=== PATIENT | female | born 1935 | race Caucasian/White ===

== ENCOUNTER 2018-03-17 08:18 | Emergency (ER) | payer OTHER ==
[2018-03-17] MEDS ORDERED: IPRATROPIUM BROM 0.5MG/2.5ML ONE (09:11)
[2018-03-17] MEDS ORDERED: ALBUTEROL 2.5 MG/3 ML NEB SOL ONE (09:11)
[2018-03-17] MEDS ORDERED: NA CHLORIDE 0.9% 2,000 ML ONE (09:11)
[2018-03-17 09:42] LABS: Absolute Lymphocytes (CBC) 0.5 K/uL (0.7-4.9); Absolute Monocytes 0.5 K/uL (0.1-1.3); Absolute Neutrophil 8.2 K/uL (1.8-8.0); Basophils % 0.5 % (0-1.3); Eosinophils % 0.1 % (0-4.4); Hematocrit 36.8 % (36.0-45.0); Lymphocytes % 5.7 % (15.3-44.8); MCV 90.7 fL (80-100); MPV 8.1 fL (7.6-11.3); Monocytes % 5.2 % (3.3-12.3); Protime INR 0.98; RBC Red Blood Cell Count 4.06 M/uL (3.86-4.86)
[2018-03-17 09:49] LABS: Potassium 3.9 mmol/L (3.5-5.1)
[2018-03-17 09:50] LABS: Albumin 3.3 g/dL (3.4-5.0); Bilirubin Direct 0.2 mg/dL (0-0.2); Bilirubin Total 0.8 mg/dL (0.2-1.0); Protein, Total 7.3 g/dL (6.4-8.2); Troponin (Emerg Dept Use Only) 0.04 ng/mL (0.0-0.045)
[2018-03-17 09:56] LABS: Urine Appearance CLEAR; Urine Bilirubin NEGATIVE (NEG); Urine Blood NEGATIVE (NEG); Urine Color YELLOW; Urine Glucose NEGATIVE (NEG); Urine Protein NEGATIVE (NEG); Urine Urobilinogen 0.2 mg/dL (0.2-1.0)
[2018-03-17 09:58] LABS: Urine Microscopic Reflex NO UMIC
[2018-03-17 10:27] LABS: Arterial Blood Carboxyhemoglob 1.1 % (0-1.5); Blood Gas Oxyhemoglobin 88.9 % (94-97); Blood O2 Saturation 90.9 % (92-98.5)
[2018-03-17 10:53] LABS: Blood Morphology Comment NOT SEEN (NOT SEEN); Platelet Estimate INCR; Urine White Blood Cell Casts OK
--- NOTE | 2018-03-17 12:09 | EKG ---
Test Date: 2018-03-17 Test Time: 09:53:36 Design Draftsman: SHARLA MEASUREMENT RESULTS: Intervals: Rate: 97 CT: 122 QRSD: 86 QT: 378 QTc: 480 Edna: P: 57 CT: 122 QRS: 58 T: 85 INTERPRETIVE STATEMENTS: Normal sinus rhythm Left ventricular hypertrophy with repolarization abnormality Abnormal ECG Compared to ECG 03/19/2017 05:47:19 Early repolarization now present Electronically Signed On 03-17-18 12:08:27 CDT by Walt Carey
--- NOTE | 2018-03-17 12:48 | RAD REPORT ---
EXAM DESCRIPTION: CT - Abdomen Pelvis W Contrast - 03/17/2018 12:24 pm CLINICAL HISTORY: Left-sided abdominal pain, left-sided flank pain, history of mastectomy for carcin jr and prior hernia repair COMPARISON: CT imaging March 2017 TECHNIQUE: Biphasic, helical CT imaging of the abdomen and pelvis was performed following 100 ml non -ionic IV contrast. Oral contrast was given. All CT scans are performed using dose optimization technique as appropriate and may include automated exposure control or mA/KV adjustment according to patient size. FINDINGS: Small bilateral pleural effusions are present. There is partial atelectasis of each lower lobe. Prominent soft tissue seen in each infrahilar region. This CT abdomen examination is not adequa te for thoracic assessment. Cardiomegaly is present. No pericardial effusion seen. The liver, spleen, and pancreas show no suspicious findings. Gallbladder and biliary tree are also wi thout suspicious finding. Renal function is symmetric and may be slightly delayed in a symmetric pattern. Bilateral pelvic and caliceal significant dilatation is present new from March 2017. Ureter dilatation is not confirmed. No bladder wall thickening or mass. No obstructing or nonobstructing calculi identifiable. No gastric dilatation or gastric wall thickening. No dilated small bowel loops. There is a relatively small amount of stool in the colon from splenic flexure to the rectum. There is a large amount of st ool distending the remainder of the colon. Right-side colon is tortuous and redundant distended by st ool. Similar pattern was seen in 2017. No free air, free fluid or inflammatory stranding. No hernia, mass or bulky lymphadenopathy. Advanced disc and bony degenerative change present. No acute or pathologic bone process process. Dens e arterial tree calcifications. No suspicious bony findings. IMPRESSION: No bowel obstruction, free air or surgically emergent finding. There is a large amount o f stool distending the right-side of the colon in a pattern similar to March 2017. Bilateral hydronephrosis of the pelvis and calices without obstructing or nonobstructing calculi seen . There is no delay in function or only minimal symmetric delay in function of the kidneys. No hydroureter seen. No bladder abnormality. The etiology for the new dilatation is unknown. Small bilateral pleural effusions and lung base atelectasis. There is additional infrahilar and lung base opacification that is not adequately imaged on CT abdomen examination.
--- NOTE | 2018-03-17 13:57 | EDPHYS ---
Physician Documentation [facility] Name: Lucille Kaminski Age: 82 yrs Sex: Female : 1935 Arrival Date: 03/17/2018 Time: 08:23 Bed 20 Private MD: out of town, doctor ED Physician Elan Gee HPI: 03/17 13:48 This 82 yrs old Female presents to ER via Wheelchair with complaints of gs Abdominal Pain, Back Pain. 13:48 The patient presents with pain that is acute. The symptoms are located in the low back. gs Onset: The symptoms/episode began/occurred 2 day(s) ago, and became persistent. The pain does not radiate. Associated signs and symptoms: Pertinent positives: abdominal pain. Modifying factors: The patient symptoms are alleviated by nothing, the patient symptoms are aggravated by any movement. Severity of symptoms: At their worst the symptoms were moderate, in the emergency department the symptoms are unchanged. The patient has experienced similar episodes in the past, a few times. just discharged from hospital last week, chf, pleural effusions. Historical: - Allergies: 08:32 Ciprofloxacin HCl; bp 08:32 Codeine; bp 08:32 metoclopramide HCl; bp 08:32 sulfamethoxazole-trimethoprim; bp - Home Meds: 08:32 albuterol sulfate inhalation Inhl 4 times per day [Active]; bp - PMHx: 08:32 breast cancer; COPD; Hypertension; Maxillary Fracture; Mycobacterium Lung Infection; bp Orbital Fracture; - PSHx: 08:32 Tonsillectomy; Hernia repair; Mastectomy; Knee surgery; bp - Immunization history:: Adult Immunizations up to date. - Social history:: Smoking status: Patient/guardian denies using tobacco. - Ebola Screening: : Patient negative for fever greater than or equal to 101.5 degrees Fahrenheit, and additional compatible Ebola Virus Disease symptoms Patient denies exposure to infectious person Patient denies travel to an Ebola-affected area in the 21 days before illness onset No symptoms or risks identified at this time. ROS: 13:48 Abdomen/GI: Positive for constipation. gs 13:48 : Positive for urinary symptoms, urinary frequency. 13:48 All other systems are negative. Exam: 13:50 Head/Face: Normocephalic, atraumatic. Eyes: Pupils equal round and reactive to light, gs extra-ocular motions intact. Lids and lashes normal. Conjunctiva and sclera are non-icteric and not injected. Cornea within normal limits. Periorbital areas with no swelling, redness, or edema. ENT: Nares patent. No nasal discharge, no septal abnormalities noted. Tympanic membranes are normal and external auditory canals are clear. Oropharynx with no redness, swelling, or masses, exudates, or evidence of obstruction, uvula midline. Mucous membranes moist. Neck: Trachea midline, no thyromegaly or masses palpated, and no cervical lymphadenopathy. Supple, full range of motion without nuchal rigidity, or vertebral point tenderness. No Meningismus. Chest/axilla: Normal chest wall appearance and motion. Nontender with no deformity. No lesions are appreciated. Cardiovascular: Regular rate and rhythm with a normal S1 and S2. No gallops, murmurs, or rubs. Normal PMI, no JVD. No pulse deficits. 13:50 Constitutional: The patient appears alert, awake. 13:50 ECG was reviewed by the Attending Physician. 13:50 Respiratory: the patient does not display signs of respiratory distress, Respirations: tachypnea, Breath sounds: rhonchi, that are moderate, are heard diffusely. Vital Signs: 08:32 BP 170 / 77; Pulse 100; Resp 24; Temp 99.4; Pulse Ox 93% on 2 lpm NC; Weight 45.81 kg; bp Height 5 ft. 2 in. (157.48 cm); 09:37 BP 160 / 67; Pulse 92; Resp 33; Pulse Ox 99% on 2 lpm NC; ch 10:10 BP 172 / 86; Pulse 105; Resp 36; Temp 98.9; Pulse Ox 92% on 2 lpm NC; Pain 0/10; ch 12:05 BP 165 / 106; Pulse 110; Resp 34; Pulse Ox 96% on 2 lpm NC; Pain 0/10; ch 13:18 BP 173 / 69; Pulse 94; Resp 32; Temp 99.1; Pulse Ox 96% on 2 lpm NC; Pain 0/10; ch 14:30 BP 158 / 86; Pulse 96; Resp 28; Temp 98.6; Pulse Ox 99% on R/A; Pain 0/10; ch 08:32 Body Mass Index 18.47 (45.81 kg, 157.48 cm) bp MDM: 08:39 Patient medically screened. gs 13:50 Differential diagnosis: Abdominal Aortic Aneurysm chronic back pain, sbo. Data gs reviewed: vital signs, nurses notes. 13:52 ED course: discussed findings of ct and blood work, pt states she does not want to be gs in the hospital and declined admission. pt states she is at baseline for her breathing, she has lasix and can take for pleural effusions, will give dose here. recommended urology consult for hydronephrosis and bladder symptoms of frequency and urgency. states was taking miralax but stopped. encouraged her to return for any reason,. increased SOB, return of abdominal pain.. 10 08:49 Order name: Basic Metabolic Panel; Complete Time: 10:04 03/17 08:49 Order name: Blood Culture Adult (2) 03/17 08:49 Order name: CBC with Diff; Complete Time: 10:57 gs 03/17 08:49 Order name: Lactate; Complete Time: 10:04 03/17 08:49 Order name: LFT's; Complete Time: 10:04 03/17 08:49 Order name: Lipase; Complete Time: 10:04 03/17 08:49 Order name: Procalcitonin; Complete Time: 10:04 03/17 08:49 Order name: Protime (+inr); Complete Time: 10:04 03/17 08:49 Order name: Troponin (emerg Dept Use Only); Complete Time: 10:04 03/17 09:43 Order name: CBC Smear Scan; Complete Time: 10:57 EDMS 03/17 09:48 Order name: UA; Complete Time: 10:04 ch 03/17 10:05 Order name: ABG; Complete Time: 10:57 gs 03/17 08:49 Order name: Chest Single View XRAY 03/17 08:49 Order name: Accucheck; Complete Time: 09:44 gs 03/17 08:49 Order name: Cardiac monitoring; Complete Time: 09:44 03/17 08:49 Order name: EKG - Nurse/Tech; Complete Time: 13:29 gs 03/17 08:49 Order name: IV Saline Lock - Large Bore; Complete Time: 09:44 gs 03/17 08:49 Order name: Labs collected and sent; Complete Time: 09:44 gs 03/17 08:49 Order name: O2 Per Protocol; Complete Time: 09:44 03/17 08:49 Order name: O2 Sat Monitoring; Complete Time: 09:44 03/17 08:49 Order name: Urine Dipstick-Ancillary (obtain specimen); Complete Time: 09:45 03/17 10:05 Order name: CT Abd/Pelvis - W/Contrast; Complete Time: 13:43 03/17 10:07 Order name: EKG Electrocardiogram; Complete Time: 13:29 EDMS EC:50 Rate is 97 beats/min. Rhythm is regular. MN interval is normal. QRS interval is normal. gs T waves are Normal. No ST changes noted. Clinical impression: Abnormal EKG without significant change. Interpreted by me. Administered Medications: 09:00 Drug: Albuterol 2.5 mg Route: Inhalation; ch 11:39 Follow up: Response: No adverse reaction; Marked relief of symptoms 09:00 Drug: AtroVENT Aerosol 0.5 mg Route: Inhalation; ch 11:38 Follow up: Response: No adverse reaction 09:46 Drug: NS 0.9% (30 ml/kg) 1200 ml Route: IV; Rate: bolus; Site: left forearm; ch 14:10 Drug: Lasix 20 mg Route: IVP; Site: left forearm; ch 14:30 Follow up: Response: No adverse reaction ch 14:33 Follow up: Response: No adverse reaction; Marked relief of symptoms Point of Care Testing: Blood Glucose: 10:10 Blood Glucose: 104 mg/dL; ch Ranges: Critical Glucose Levels:Adult <50 mg/dl or >400 mg/dl <40 mg/dl or >180 mg/dl Disposition: 03/17/18 13:57 Discharged to Home. Impression: Abdominal and pelvic pain. - Condition is Stable. - Prescriptions for Miralax 17 gram/dose Oral - take 1 packet by ORAL route once daily dilute powder in 8 ounces of water or juice; 1 bottle. - SBAR form, Medication Reconciliation Form, Thank You Letter, Antibiotic Education, Prescription Opioid Use form. - Follow up: Private Physician; When: 1 - 2 days; Reason: Re-evaluation by your physician. Follow up: Fili Owen MD; When: 2 - 3 days; Reason: Re-evaluation by your physician. Signatures: Dispatcher [employer] EDMS Tessie Alarcon, RN RN Elan Gee MD MD Saturnino Aponte, RN RN bp Corrections: (The following items were deleted from the chart) 08:50 08:49 LIPASE+C.LAB.BRZ ordered. EDNJ EDMS 09:51 08:49 UA MICROSCOPIC+U.LAB.BRZ ordered. EDNJ EDNJ 14:41 13:57 03/17/2018 13:57 Discharged to Home. Impression: Abdominal and pelvic pain. Condition is Stable. Forms are SBAR form, Medication Reconciliation Form, Thank You Letter, Antibiotic Education, Prescription Opioid Use. Follow up: Private Physician; When: 1 - 2 days; Reason: Re-evaluation by your physician. Follow up: Fili Owen; When: 2 - 3 days; Reason: Re-evaluation by your physician. gs
--- NOTE | 2018-03-17 13:57 | ER ---
Nurse's Notes [facility] Name: Lucille Kaminski Age: 82 yrs Sex: Female : 1935 Arrival Date: 03/17/2018 Time: 08:23 Bed 20 Private MD: out of town, doctor Diagnosis: Abdominal and pelvic pain Presentation: 03/17 08:29 Presenting complaint: Patient states: LEFT FLANK PAIN RADIATING TO LEFT ABD. Transition bp of care: patient was not received from another setting of care. Onset of symptoms was March 14, 2018. Risk Assessment: Do you want to hurt yourself or someone else? Patient reports no desire to harm self or others. Initial Sepsis Screen: Does the patient meet any 2 criteria? HR > 90 bpm. Does the patient have a suspected source of infection?. Care prior to arrival: None. 08:29 Method Of Arrival: Wheelchair bp 08:29 Acuity: MONICA 3 bp Triage Assessment: 08:32 General: Appears distressed, comfortable, Behavior is cooperative, appropriate for age, bp anxious. Pain: Complains of pain in posterior aspect of left lateral abdomen and anterior aspect of left lateral abdomen. GI: Patient currently denies nausea, vomiting. Historical: - Allergies: 08:32 Ciprofloxacin HCl; bp 08:32 Codeine; bp 08:32 metoclopramide HCl; bp 08:32 sulfamethoxazole-trimethoprim; bp - Home Meds: 08:32 albuterol sulfate inhalation Inhl 4 times per day [Active]; bp - PMHx: 08:32 breast cancer; COPD; Hypertension; Maxillary Fracture; Mycobacterium Lung Infection; bp Orbital Fracture; - PSHx: 08:32 Tonsillectomy; Hernia repair; Mastectomy; Knee surgery; bp - Immunization history:: Adult Immunizations up to date. - Social history:: Smoking status: Patient/guardian denies using tobacco. - Ebola Screening: : Patient negative for fever greater than or equal to 101.5 degrees Fahrenheit, and additional compatible Ebola Virus Disease symptoms Patient denies exposure to infectious person Patient denies travel to an Ebola-affected area in the 21 days before illness onset No symptoms or risks identified at this time. Screenin:51 Abuse screen: Denies threats or abuse. Denies injuries from another. Nutritional ch screening: No deficits noted. Tuberculosis screening: No symptoms or risk factors identified. Fall Risk None identified. Assessment: 08:51 General: Appears in no apparent distress. comfortable, Behavior is calm, cooperative, ch appropriate for age. Pain: Complains of pain in left scapular area, left subscapular area, left mid back and posterior aspect of left lateral abdomen Pain currently is 6 out of 10 on a pain scale. Pain began gradually. Neuro: No deficits noted. Level of Consciousness is awake, alert, obeys commands, Oriented to person, place, time. Respiratory: Airway is patent Trachea midline Respiratory effort is even, labored, Respiratory pattern is symmetrical, tachypnea Breath sounds are coarse bilaterally. Breath sounds are diminished in left posterior lower lobe and right posterior lower lobe. GI: Bowel sounds present X 4 quads. Abd is soft and non tender X 4 quads. Reports upper abdominal pain, constipation, nausea. :. Derm: Skin is fragile, Skin is jaundiced. Musculoskeletal: Capillary refill < 3 seconds, in bilateral fingers. toes. 08:59 Reassessment: PT ATTEMPTED TO URINATE VIA BSC, STATES SHE COULD NOT. PT STATES THAT IS ch HAPPENING MORE AND MORE OFTEN WITH HER. 10:00 Reassessment: Patient appears in no apparent distress at this time. No changes from ch previously documented assessment. 11:00 Reassessment: Patient appears in no apparent distress at this time. Patient and/or ch family updated on plan of care and expected duration. Pain level reassessed. pt has productive cough Patient states feeling better. Patient states symptoms have improved. 12:04 Reassessment: Patient appears in no apparent distress at this time. Patient and/or ch family updated on plan of care and expected duration. Pain level reassessed. pt rr unchanged, pt states that is her normal. pt urinates to bsc x2. 13:18 Reassessment: Patient appears in no apparent distress at this time. Patient and/or ch family updated on plan of care and expected duration. Pain level reassessed. awaiting erp to make decision on pt plan of care. pt states she feels better. Patient states feeling better. Patient states symptoms have improved. Respiratory: Airway is patent Respiratory effort is even, labored, Respiratory pattern is tachypnea Breath sounds with wheezes bilaterally. lung sounds improved from arrival. Vital Signs: 08:32 BP 170 / 77; Pulse 100; Resp 24; Temp 99.4; Pulse Ox 93% on 2 lpm NC; Weight 45.81 kg; bp Height 5 ft. 2 in. (157.48 cm); 09:37 BP 160 / 67; Pulse 92; Resp 33; Pulse Ox 99% on 2 lpm NC; ch 10:10 BP 172 / 86; Pulse 105; Resp 36; Temp 98.9; Pulse Ox 92% on 2 lpm NC; Pain 0/10; ch 12:05 BP 165 / 106; Pulse 110; Resp 34; Pulse Ox 96% on 2 lpm NC; Pain 0/10; ch 13:18 BP 173 / 69; Pulse 94; Resp 32; Temp 99.1; Pulse Ox 96% on 2 lpm NC; Pain 0/10; ch 14:30 BP 158 / 86; Pulse 96; Resp 28; Temp 98.6; Pulse Ox 99% on R/A; Pain 0/10; ch 08:32 Body Mass Index 18.47 (45.81 kg, 157.48 cm) bp ED Course: 08:23 Patient arrived in ED. mr 08:23 out of town, doctor is Private Physician. mr 08:30 Triage completed. bp 08:32 Arm band placed on. bp 08:34 Elan Gee MD is Attending Physician. gs 08:51 Tessie Alarcon, RN is Primary Nurse. ch 08:51 Patient has correct armband on for positive identification. Bed in low position. Call light in reach. Side rails up X 1. Adult w/ patient. circuit board inspector on. Pulse ox on. NIBP on. 09:12 X-ray completed. Portable x-ray completed in exam room. jb2 09:14 Chest Single View XRAY In Process Unspecified. EDMS 09:37 No provider procedures requiring assistance completed. Initial lab(s) drawn, by ga, ch sent to lab. Urine collected: straight cath specimen, clear. Inserted saline lock: 20 gauge in left forearm, using aseptic technique. Blood collected. 10:03 EKG done, by imaging technologist. reviewed by Elan Gee MD. at1 12:24 CT Abd/Pelvis - W/Contrast In Process Unspecified. EDMS 12:25 CT completed. Patient tolerated procedure well. Patient moved to CT via wheelchair. mw3 Patient moved back from CT. 13:56 Fili Owen MD is Referral Physician. gs 14:30 IV discontinued, intact, bleeding controlled, No redness/swelling at site. Pressure ch dressing applied. Administered Medications: 09:00 Drug: Albuterol 2.5 mg Route: Inhalation; ch 11:39 Follow up: Response: No adverse reaction; Marked relief of symptoms ch 09:00 Drug: AtroVENT Aerosol 0.5 mg Route: Inhalation; ch 11:38 Follow up: Response: No adverse reaction ch 09:46 Drug: NS 0.9% (30 ml/kg) 1200 ml Route: IV; Rate: bolus; Site: left forearm; ch 14:10 Drug: Lasix 20 mg Route: IVP; Site: left forearm; ch 14:30 Follow up: Response: No adverse reaction ch 14:33 Follow up: Response: No adverse reaction; Marked relief of symptoms Point of Care Testing: Blood Glucose: 10:10 Blood Glucose: 104 mg/dL; ch Ranges: Intake: 10:10 pt had 500 mL stright cath, and then 600mL void into bsc ch Output: 10:10 Urine: 1100ml (Voided); Total: 1100ml. ch 12:05 Urine: 400ml (Voided); Total: 1500ml. ch 10:10 pt had 500 mL stright cath, and then 600mL void into bsc ch Outcome: 13:57 Discharge ordered by . 14:40 Discharged to home via wheelchair, with family. 14:40 Condition: improved 14:40 Discharge instructions given to patient, family, Instructed on discharge instructions, follow up and referral plans. Demonstrated understanding of instructions, follow-up care. 14:41 Patient left the ED. Signatures: Dispatcher [employer] EDMS Tessie Alarcon, RN RN LeivaLynn love Fazal wing2 Mirela Pearson, short range air defense artillery EKG Tat1 Klaudia Tapia 5 Elan Gee MD MD gs Peltier, Brian, RN RN Catina Escudero mw3 Corrections: (The following items were deleted from the chart) 09:45 09:37 BP 160 / 67; Pulse 92bpm; Resp 33bpm; Pulse Ox 99% RA; mh5
[2018-03-17] MEDS ORDERED: FUROSEMIDE 20 MG/ 2ML VIAL ONE (14:21)
[2018-03-17 15:07] VITALS: O2SAT 96
[2018-03-17 15:09] VITALS: BP 173/69; TEMP 99.1
--- NOTE | 2018-03-17 18:53 | RAD REPORT ---
EXAM DESCRIPTION: Satisht Single View03/17/2018 9:13 am CLINICAL HISTORY: Chest pain COMPARISON: March 2017 FINDINGS: Diffuse bilateral interstitial lung opacities are without obvious change. The heart is mildly to moderately enlarged. Blunting of the right costophrenic sulcus could be second dora to small pleural effusion or thickening. IMPRESSION: Diffuse bilateral interstitial lung opacities may all be chronic or represent an atypica l pneumonia/pneumonitis superimposed over chronic changes
== END 2018-03-17 14:41 | disposition home or self-care (01) ==
LOC: ER 08:18
DX: R10.2 Pelvic and perineal pain (principal); I10 Essential (primary) hypertension; Z85.3 Personal history of malignant neoplasm of breast; Z88.1 Allergy status to other antibiotic agents; Z88.2 Allergy status to sulfonamides; Z88.5 Allergy status to narcotic agent; Z88.8 Allergy status to other drugs, medicaments and biological substances
CPT/HCPCS: 36415; 71045; 74177; 80048; 80076; 81003; 82805; 82962; 83605; 83690; 84145; 84484; 85025; 85610; 87040 ×2; 93005; J1940; J7030; Q9967; 96374; 96375; 99285

== ENCOUNTER 2018-03-20 09:45 | Emergency (ER) | payer OTHER ==
[2018-03-20 11:01] LABS: Absolute Lymphocytes (CBC) 0.7 K/uL (0.7-4.9); Absolute Monocytes 0.6 K/uL (0.1-1.3); Absolute Neutrophil 5.7 K/uL (1.8-8.0); Basophils % 0.5 % (0-1.3); Eosinophils % 0.2 % (0-4.4); Hematocrit 36.6 % (36.0-45.0); Lymphocytes % 10.2 % (15.3-44.8); MCH 30.1 pg (27.0-35.0); MCV 89.8 fL (80-100); MPV 8.5 fL (7.6-11.3); Monocytes % 8.8 % (3.3-12.3); RBC Red Blood Cell Count 4.07 M/uL (3.86-4.86)
[2018-03-20 11:07] LABS: ALT/SGPT 25 U/L (12-78); AST/SGOT 18 U/L (15-37); Alkaline Phosphatase 58 U/L (45-117); BUN Blood Urea Nitrogen 14 mg/dL (7-18); Bicarbonate 30 mmol/L (21-32); Bilirubin Direct 0.3 mg/dL (0-0.2); Bilirubin Total 0.8 mg/dL (0.2-1.0); Glucose Level 95 mg/dL (74-106); Lipase 172 U/L (73-393); Potassium 3.4 mmol/L (3.5-5.1); Protein, Total 6.9 g/dL (6.4-8.2); Sodium Level 132 mmol/L (136-145)
--- NOTE | 2018-03-20 11:15 | RAD REPORT ---
EXAM DESCRIPTION: CT - Stone Protocol - 03/20/2018 10:56 am CLINICAL HISTORY: Flank pain. abdominal pain, constipation COMPARISON: Abdomen Pelvis W Contrast dated 03/17/2018; Angio Aorta For Dissection dated 7 TECHNIQUE: Axial images were obtained without oral or IV contrast. Lack of contrast limits solid org an and vascular assessment. The [id number] spans the entirety of the system partially obscuring uppermost abdomen and lung bases. Coronal reformatted images were obtained and reviewed. All CT scans are performed using dose optimization technique as appropriate and may include automated exposure control or mA/KV adjustment according to patient size. FINDINGS: Bronchiectasis is present bilaterally. Opacities are present in both posterior lung bases, probably representing atelectasis or aspiration. Small pleural effusions. Moderate cardiomegaly. Imaged portions of the liver and spleen show no suspicious findings on non-contrast imaging.Atheroscl erosis is noted. The pancreas and adrenal glands are normal. No pathologic lymphadenopathy in the abd omen or pelvis. No renal calculus identified. Mild caliectasis bilaterally appears unchanged. Large amount of stool is present in the colon. No bowel obstruction, free air, free fluid or abscess. Normal appendix noted. Prominent scoliosis of the lumbar spine with concavity to the left. IMPRESSION: Marked fecal retention. Small bilateral pleural effusions with opacities in both posterior lung bases, greater on the right, favored to represent aspiration or atelectasis.
[2018-03-20 11:56] LABS: Urine Blood NEGATIVE (NEG); Urine Glucose NEGATIVE (NEG); Urine Protein 2+ (NEG); Urine pH 7.5 (5.0-7.0)
--- NOTE | 2018-03-20 13:26 | EDPHYS ---
Physician Documentation [facility] Name: Lucille Kaminski Age: 82 yrs Sex: Female : 1935 Arrival Date: 03/20/2018 Time: 09:49 Bed 13 Private MD: out of town, doctor ED Physician Raulito Ornelas HPI: 03/20 10:15 This 82 yrs old Female presents to ER via Wheelchair with complaints of jmm Abdominal Swelling, Abdominal Pain. 10:15 The patient presents with abdominal pain abdominal distention. Onset: The jmm symptoms/episode began/occurred gradually, 1 week(s) ago. The symptoms do not radiate. Associated signs and symptoms: Pertinent positives: constipation. This is an 82 year old female with a history of COPD, HTN, that presents to the ED with abdominal distention and constipation. Patient was evaluated this past Friday due to concerns for diverticulitis. Patient states she has not had a bowel movement since then. . Historical: - Allergies: 10:00 Ciprofloxacin HCl; aj 10:00 Codeine; aj 10:00 metoclopramide HCl; aj 10:00 sulfamethoxazole-trimethoprim; aj - Home Meds: 10:00 albuterol sulfate inhalation Inhl 4 times per day [Active]; azithromycin 250 mg Oral aj tab 1 tab once daily [Active]; ethambutol 400 mg Oral tab 1200 mg once daily [Active]; Evista 60 mg Oral tab 1 tab once daily [Active]; Fish Oil 1,000 mg Oral cap twice a day [Active]; Gammagard Liquid 10 % injection soln 5 CM every 4 wks [Active]; ipratropium bromide 0.02 % inhalation soln every 6 hours [Active]; Lasix 20 mg Oral tab as needed [Active]; lutein 40 mg Oral cap daily [Active]; levothyroxine 50 mcg tab 1 tab once daily [Active]; Requip 1 mg Oral tab four times a day [Active]; potassium chloride 10 mEq Oral cpER 1 cap as needed [Active]; rifabutin 150 mg Oral cap 2 caps 2 times per day [Active]; Singulair 10 mg Oral tab 1 tab once daily [Active]; venlafaxine 50 mg Oral tab nightly [Active]; Vitamin D Oral 2000 unit daily [Active]; vitamin E 400 unit Oral cap daily [Active]; - PMHx: 10:00 breast cancer; COPD; Hypertension; Maxillary Fracture; Mycobacterium Lung Infection; aj Orbital Fracture; Chronic Constipation; - Immunization history:: Adult Immunizations up to date. - Social history:: Smoking status: Patient/guardian denies using tobacco. - Ebola Screening: : Patient negative for fever greater than or equal to 101.5 degrees Fahrenheit, and additional compatible Ebola Virus Disease symptoms Patient denies exposure to infectious person Patient denies travel to an Ebola-affected area in the 21 days before illness onset No symptoms or risks identified at this time. ROS: 10:42 Constitutional: Negative for fever, chills, and weight loss, Cardiovascular: Negative jmm for chest pain, palpitations, and edema, Respiratory: Negative for shortness of breath, cough, wheezing, and pleuritic chest pain. 10:42 Abdomen/GI: Positive for abdominal pain, constipation. 10:42 All other systems are negative. Exam: 10:42 Head/Face: atraumatic. Chest/axilla: Normal chest wall appearance and motion. [facility] Cardiovascular: Regular rate and rhythm. No edema appreciated Respiratory: Normal respirations, no respiratory distress appreciated 10:42 Constitutional: The patient appears in no acute distress, alert, awake. 10:42 Abdomen/GI: Inspection: abdomen appears normal, Bowel sounds: Palpation: soft, mild abdominal tenderness, in all quadrants. 10:42 Skin: Appearance: Color: normal in color. 10:42 Neuro: Orientation: is normal, Mentation: is normal, Memory: is normal. 10:42 Psych: Behavior/mood is pleasant, cooperative. Vital Signs: 10:00 BP 174 / 86; Pulse 97; Resp 18; Temp 98.3; Pulse Ox 94% on 2 lpm NC; Weight 45.81 kg; aj Height 5 ft. 2 in. (157.48 cm); 11:03 BP 163 / 82; Pulse 91; Resp 20; Pulse Ox 96% on NC; bp 12:02 BP 185 / 79; Pulse 98; Resp 20; Pulse Ox 98% ; bp 14:00 BP 171 / 93; Pulse 84; Resp 16; Pulse Ox 98% ; bp 10:00 Body Mass Index 18.47 (45.81 kg, 157.48 cm) aj MDM: 10:13 Patient medically screened. [facility] 13:24 Data reviewed: vital signs, nurses notes. Counseling: I had a detailed discussion with [facility] the patient and/or guardian regarding: the historical points, exam findings, and any diagnostic results supporting the discharge/admit diagnosis, radiology results, the need for outpatient follow up, to return to the emergency department if symptoms worsen or persist or if there are any questions or concerns that arise at home. 13:24 Data reviewed: lab test result(s), radiologic studies, CT scan. [facility] 13:24 ED course: Patient's abdomen is soft. Labs and imaging are not concerning for an acute [facility] intrabdominal process. Patient is encouraged to begin miralax and follow up with GI for further evaluation. patient is also given strict return precautions. Patient understood and agrees with the plan of care. . 03/20 10:14 Order name: Basic Metabolic Panel; Complete Time: 11:20 [facility] 03/20 10:14 Order name: CBC with Diff; Complete Time: 11:04 [facility] 03/20 10:14 Order name: Creatinine for Radiology; Complete Time: 11:20 [facility] 03/20 10:14 Order name: Hepatic Function; Complete Time: 11:20 [facility] 03/20 10:14 Order name: Lipase; Complete Time: 11:20 [facility] 03/20 10:51 Order name: Urine Dipstick--Ancillary (enter results); Complete Time: 11:58 eb 03/20 10:14 Order name: IV Saline Lock; Complete Time: 10:41 [facility] 03/20 10:14 Order name: Labs collected and sent; Complete Time: 10:41 [facility] 03/20 10:14 Order name: CT Stone Protocol; Complete Time: 11:20 [facility] 03/20 10:44 Order name: Urine Dipstick-Ancillary (obtain specimen); Complete Time: 10:44 bp 03/20 11:33 Order name: Misc. Order: 1 part prune, 1/2 apple, 1/2 pineapple or orange, 1 pad [facility] butter; Complete Time: 11:49 Administered Medications: No medications were administered Disposition: 03/21 13:09 Co-signature as Attending Physician, Raulito Ornelas MD I agree with the assessment and kdr plan of care. Disposition: 03/20/18 13:25 Discharged to Home. Impression: Constipation, unspecified. - Condition is Stable. - Discharge Instructions: Constipation, Adult. - Prescriptions for Miralax 17 gram/dose Oral - take 1 packet by ORAL route once daily dilute powder in 8 ounces of water or juice; 1 unit. - Medication Reconciliation Form, Thank You Letter, Antibiotic Education, Prescription Opioid Use form. - Follow up: Shade Todd MD; When: 2 - 3 days; Reason: Recheck today's complaints, Continuance of care, Re-evaluation by your physician. Signatures: Dispatcher [employer] EDMS Mirela Sepulveda, RN RN Raulito Caraballo MD MD [facility] Micky Lara PA PA [facility] Saturnino Aponte RN RN bp Corrections: (The following items were deleted from the chart) 03/20 10:44 10:15 This is an 82 year old female with a history of COPD, HTN, that presents to the [facility] ED with abdominal distention and constipation. . [facility] 14:21 13:25 03/20/2018 13:25 Discharged to Home. Impression: Constipation, unspecified. bp Condition is Stable. Forms are Medication Reconciliation Form, Thank You Letter, Antibiotic Education, Prescription Opioid Use. Follow up: Shade Todd; When: 2 - 3 days; Reason: Recheck today's complaints, Continuance of care, Re-evaluation by your physician. [facility] 20:34 13:24 ED course: Patient's abdomen is soft. Labs and imaging are not concerning for an [facility] acute intrabdominal process. i. [facility]
--- NOTE | 2018-03-20 13:26 | ER ---
Nurse's Notes [facility] Name: Lucille Kaminski Age: 82 yrs Sex: Female : 1935 Arrival Date: 03/20/2018 Time: 09:49 Bed 13 Private MD: out of town, doctor Diagnosis: Constipation, unspecified Presentation: 03/20 09:57 Presenting complaint: Patient states: C/O abdominal pain and bloating with aj constipation. Patient reports symptoms are the same as her last visit to this ER on Friday. Reports no BM for 10 days. Transition of care: patient was not received from another setting of care. Onset of symptoms was March 10, 2018. Risk Assessment: Do you want to hurt yourself or someone else? Patient reports no desire to harm self or others. Initial Sepsis Screen: Does the patient meet any 2 criteria? No. Patient's initial sepsis screen is negative. Does the patient have a suspected source of infection? No. Patient's initial sepsis screen is negative. Care prior to arrival: Medication(s) given: Patient reported taking Miralax x 2 doses yesterday and 3 doses of Senokot laxative yesterday. 09:57 Method Of Arrival: Wheelchair aj 09:57 Acuity: MONICA 3 aj Triage Assessment: 10:00 General: Appears in no apparent distress. comfortable, Behavior is calm, cooperative, aj appropriate for age. Pain: Complains of pain in abdomen. Pain: Pain currently is 4 out of 10 on a pain scale. Neuro: Level of Consciousness is awake, alert, obeys commands, Oriented to person, place, time, situation, Appropriate for age. Respiratory: Airway is patent Respiratory effort is even, unlabored, Respiratory pattern is regular, symmetrical. GI: Abdomen is flat, non-distended, Reports bloating, constipation. Derm: Skin is intact, is healthy with good turgor, Skin is pink, warm \T\ dry. normal. Historical: - Allergies: 10:00 Ciprofloxacin HCl; aj 10:00 Codeine; aj 10:00 metoclopramide HCl; aj 10:00 sulfamethoxazole-trimethoprim; aj - Home Meds: 10:00 albuterol sulfate inhalation Inhl 4 times per day [Active]; azithromycin 250 mg Oral aj tab 1 tab once daily [Active]; ethambutol 400 mg Oral tab 1200 mg once daily [Active]; Evista 60 mg Oral tab 1 tab once daily [Active]; Fish Oil 1,000 mg Oral cap twice a day [Active]; Gammagard Liquid 10 % injection soln 5 CM every 4 wks [Active]; ipratropium bromide 0.02 % inhalation soln every 6 hours [Active]; Lasix 20 mg Oral tab as needed [Active]; lutein 40 mg Oral cap daily [Active]; levothyroxine 50 mcg tab 1 tab once daily [Active]; Requip 1 mg Oral tab four times a day [Active]; potassium chloride 10 mEq Oral cpER 1 cap as needed [Active]; rifabutin 150 mg Oral cap 2 caps 2 times per day [Active]; Singulair 10 mg Oral tab 1 tab once daily [Active]; venlafaxine 50 mg Oral tab nightly [Active]; Vitamin D Oral 2000 unit daily [Active]; vitamin E 400 unit Oral cap daily [Active]; - PMHx: 10:00 breast cancer; COPD; Hypertension; Maxillary Fracture; Mycobacterium Lung Infection; aj Orbital Fracture; Chronic Constipation; - Immunization history:: Adult Immunizations up to date. - Social history:: Smoking status: Patient/guardian denies using tobacco. - Ebola Screening: : Patient negative for fever greater than or equal to 101.5 degrees Fahrenheit, and additional compatible Ebola Virus Disease symptoms Patient denies exposure to infectious person Patient denies travel to an Ebola-affected area in the 21 days before illness onset No symptoms or risks identified at this time. Screenin:39 Abuse screen: Denies threats or abuse. Denies injuries from another. Nutritional bp screening: No deficits noted. Tuberculosis screening: No symptoms or risk factors identified. Fall Risk None identified. Assessment: 10:15 General: Appears in no apparent distress. comfortable, slender, Behavior is calm, bp cooperative, appropriate for age. Pain: Complains of pain in abdomen. Neuro: Level of Consciousness is awake, alert, obeys commands, Oriented to person, place, time, situation, Appropriate for age. Cardiovascular: Rhythm is sinus rhythm. Respiratory: Airway is patent Respiratory effort is labored, shallow, Respiratory pattern is regular, symmetrical. GI: Bowel sounds present X 4 quads. Abd is soft X 4 quads. : No signs and/or symptoms were reported regarding the genitourinary system. EENT: No deficits noted. Derm: No deficits noted. Musculoskeletal: Circulation, motion, and sensation intact. Range of motion: intact in all extremities. 10:45 Reassessment: PT TO CT WITH EXTRAS CASTING DIRECTOR. bp 11:00 Reassessment: PT RETURNED FROM CT. ALL CURRENT ORDERS COMPLETED, RESULTS PENDING. bp 12:01 Reassessment: PT DRINKING OFF-LABEL LAXATIVE. UNSUCCESSFUL MANUAL DISIMPACTION BY ON AWAKE COUNSELOR, bp PT TOLERATED WELL. 14:20 Reassessment: PT D/C HOME VIA W/C WITH FAMILY, DX WITH CONSTIPATION. bp Vital Signs: 10:00 BP 174 / 86; Pulse 97; Resp 18; Temp 98.3; Pulse Ox 94% on 2 lpm NC; Weight 45.81 kg; aj Height 5 ft. 2 in. (157.48 cm); 11:03 BP 163 / 82; Pulse 91; Resp 20; Pulse Ox 96% on NC; bp 12:02 BP 185 / 79; Pulse 98; Resp 20; Pulse Ox 98% ; bp 14:00 BP 171 / 93; Pulse 84; Resp 16; Pulse Ox 98% ; bp 10:00 Body Mass Index 18.47 (45.81 kg, 157.48 cm) ED Course: 09:49 Patient arrived in ED. mr 09:49 out of town, doctor is Private Physician. mr 09:59 Triage completed. aj 10:00 Arm band placed on left wrist. Patient placed in an exam room. aj 10:04 Micky Lara PA is PHCP. [facility] 10:04 Raulito Ornelas MD is Attending Physician. [facility] 10:07 Saturnino Aponte, RN is Primary Nurse. bp 10:39 Patient has correct armband on for positive identification. Placed in gown. Bed in low bp position. Call light in reach. Side rails up X2. 10:39 Inserted saline lock: 22 gauge in left forearm, using aseptic technique. Blood bp collected. 10:50 Urine collected: clean catch specimen, cloudy, val colored. jb1 10:57 CT Stone Protocol In Process Unspecified. EDMS 13:24 Shade Todd MD is Referral Physician. jmm 14:04 No provider procedures requiring assistance completed. IV discontinued, intact, bp bleeding controlled, No redness/swelling at site. Pressure dressing applied. Administered Medications: No medications were administered Outcome: 13:25 Discharge ordered by MD. dhillon 14:21 Discharged to home via wheelchair, with family. bp 14:21 Condition: stable 14:21 Discharge instructions given to patient, family, Instructed on discharge instructions, follow up and referral plans. medication usage, Demonstrated understanding of instructions, follow-up care, medications, Prescriptions given X 1. 14:21 Patient left the ED. bp Signatures: Dispatcher [employer] EDKeagan Parikh jb1 Mirela Sepulveda, RN RN Micky Lim PA PA jmm Rivera, Mary mr Peltier, Brian, RN RN bp
[2018-03-20 14:25] VITALS: TEMP 98.3
[2018-03-20 14:27] VITALS: O2SAT 98
[2018-03-20 14:29] VITALS: BP 171/93
== END 2018-03-20 14:21 | disposition home or self-care (01) ==
LOC: ER 09:45
DX: K59.00 Constipation, unspecified (principal); I10 Essential (primary) hypertension; J44.9 Chronic obstructive pulmonary disease, unspecified; Z88.2 Allergy status to sulfonamides; Z85.3 Personal history of malignant neoplasm of breast; Z88.5 Allergy status to narcotic agent; Z88.8 Allergy status to other drugs, medicaments and biological substances
CPT/HCPCS: 36415; 74176; 76377; 80048; 80076; 81003; 83690; 85025; 99284

== ENCOUNTER 2018-03-24 04:08 | Emergency (ER) | payer OTHER ==
[2018-03-24] MEDS ORDERED: BISACODYL 10 MG RECTAL SUPP ONE (04:50)
--- NOTE | 2018-03-24 05:59 | EDPHYS ---
Physician Documentation [facility] Name: Lucille Kaminski Age: 82 yrs Sex: Female : 1935 Arrival Date: 03/24/2018 Time: 04:10 Bed 15 Private MD: ED Physician Elan Gee HPI: 03/24 05:56 This 82 yrs old Female presents to ER via Wheelchair with complaints of gs Abdominal Pain, Constipation. 05:56 Onset: The symptoms/episode began/occurred 1 week(s) ago. Associated signs and gs symptoms: Pertinent positives: constipation, Pertinent negatives: diarrhea, fever, vomiting, vomiting blood. Severity of pain: At its worst the pain was moderate in the emergency department the pain is unchanged. The patient has experienced similar episodes in the past, multiple times. The patient has been recently seen by a physician: and dr velasco. Historical: - Allergies: 04:41 Ciprofloxacin HCl; lp1 04:41 Codeine; lp1 04:41 metoclopramide HCl; lp1 04:41 sulfamethoxazole-trimethoprim; lp1 - Home Meds: 04:41 albuterol sulfate inhalation Inhl 4 times per day [Active]; azithromycin 250 mg Oral lp1 tab 1 tab once daily [Active]; ethambutol 400 mg Oral tab 1200 mg once daily [Active]; Evista 60 mg Oral tab 1 tab once daily [Active]; Fish Oil 1,000 mg Oral cap twice a day [Active]; Gammagard Liquid 10 % injection soln 5 CM every 4 wks [Active]; ipratropium bromide 0.02 % inhalation soln every 6 hours [Active]; Lasix 20 mg Oral tab as needed [Active]; levothyroxine 50 mcg tab 1 tab once daily [Active]; lutein 40 mg Oral cap daily [Active]; potassium chloride 10 mEq Oral cpER 1 cap as needed [Active]; Requip 1 mg Oral tab four times a day [Active]; rifabutin 150 mg Oral cap 2 caps 2 times per day [Active]; Singulair 10 mg Oral tab 1 tab once daily [Active]; venlafaxine 50 mg Oral tab nightly [Active]; Vitamin D Oral 2000 unit daily [Active]; vitamin E 400 unit Oral cap daily [Active]; - PMHx: 04:41 breast cancer; chronic constipation; COPD; Hypertension; Maxillary Fracture; lp1 Mycobacterium Lung Infection; Orbital Fracture; - PSHx: 04:41 Tonsillectomy; Mastectomy; Knee surgery; Hernia repair; lp1 - Immunization history:: Adult Immunizations up to date. - Social history:: Smoking status: Patient/guardian denies using tobacco. - Ebola Screening: : No symptoms or risks identified at this time. ROS: 05:56 All other systems are negative. gs Exam: 05:56 Head/Face: Normocephalic, atraumatic. Eyes: Pupils equal round and reactive to light, gs extra-ocular motions intact. Lids and lashes normal. Conjunctiva and sclera are non-icteric and not injected. Cornea within normal limits. Periorbital areas with no swelling, redness, or edema. ENT: Nares patent. No nasal discharge, no septal abnormalities noted. Tympanic membranes are normal and external auditory canals are clear. Oropharynx with no redness, swelling, or masses, exudates, or evidence of obstruction, uvula midline. Mucous membranes moist. Neck: Trachea midline, no thyromegaly or masses palpated, and no cervical lymphadenopathy. Supple, full range of motion without nuchal rigidity, or vertebral point tenderness. No Meningismus. Chest/axilla: Normal chest wall appearance and motion. Nontender with no deformity. No lesions are appreciated. Cardiovascular: Regular rate and rhythm with a normal S1 and S2. No gallops, murmurs, or rubs. Normal PMI, no JVD. No pulse deficits. 05:56 Back: No spinal tenderness. No costovertebral tenderness. Full range of motion. Skin: Warm, dry with normal turgor. Normal color with no rashes, no lesions, and no evidence of cellulitis. MS/ Extremity: Pulses equal, no cyanosis. Neurovascular intact. Full, normal range of motion. Neuro: Awake and alert, GCS 15, oriented to person, place, time, and situation. Cranial nerves II-XII grossly intact. Motor strength 5/5 in all extremities. Sensory grossly intact. Cerebellar exam normal. Normal gait. 05:56 Constitutional: The patient appears alert, awake. 05:56 Respiratory: Exam negative for acute changes, the patient does not display signs of respiratory distress, Respirations: normal, Breath sounds: rales, that are mild, are heard diffusely, rhonchi. 05:56 Abdomen/GI: Palpation: mild abdominal tenderness, in all quadrants, rebound tenderness, is not appreciated. Vital Signs: 04:34 BP 189 / 76; Pulse 88; Resp 18; Temp 97.5(O); Pulse Ox 99% on 2 lpm NC; Weight 45.81 lp1 kg; Height 5 ft. 2 in. (157.48 cm); Pain 10/10; 04:50 BP 172 / 76; Pulse 82; Resp 18; Pulse Ox 100% on 2 lpm NC; lp1 05:29 BP 153 / 79; Pulse 80; Resp 18; Pulse Ox 100% on 2 lpm NC; lp1 04:34 Body Mass Index 18.47 (45.81 kg, 157.48 cm) lp1 MDM: 04:24 Patient medically screened. 05:56 Differential diagnosis: non-specific abd pain, constipation. Data reviewed: vital gs signs, nurses notes. Response to treatment: the patient's symptoms have markedly improved after treatment, the patient's condition has returned to base line, and as a result, I will discharge patient. Administered Medications: 04:47 Drug: Dulcolax Suppository 10 mg Route: CA; lp1 06:15 Follow up: Response: No adverse reaction lp1 Disposition: 03/24/18 05:58 Discharged to Home. Impression: Constipation, Generalized abdominal pain. - Condition is Stable. - Discharge Instructions: Abdominal Pain, Adult. - Medication Reconciliation Form, Thank You Letter, Antibiotic Education, Prescription Opioid Use form. - Follow up: Shade Velasco MD; When: 1 - 2 days; Reason: Re-evaluation by your physician. Signatures: Charlotte Flores RN RN 1 Elan Gee MD MD Corrections: (The following items were deleted from the chart) 06:16 05:58 03/24/2018 05:58 Discharged to Home. Impression: Constipation; Generalized lp1 abdominal pain. Condition is Stable. Forms are Medication Reconciliation Form, Thank You Letter, Antibiotic Education, Prescription Opioid Use. Follow up: Shade Velasco; When: 1 - 2 days; Reason: Re-evaluation by your physician. gs
--- NOTE | 2018-03-24 05:59 | ER ---
Nurse's Notes [facility] Name: Lucille Kaminski Age: 82 yrs Sex: Female : 1935 Arrival Date: 03/24/2018 Time: 04:10 Bed 15 Private MD: Diagnosis: Constipation;Generalized abdominal pain Presentation: 03/24 04:32 Presenting complaint: Child states: Seen here on Friday for same symptoms of lp1 constipation; States taking prescribed medications with no relief; States pain/pressure to general abdomen; Denies any nausea, vomiting. Transition of care: patient was not received from another setting of care. Onset of symptoms was March 24, 2018. Risk Assessment: Do you want to hurt yourself or someone else? Patient reports no desire to harm self or others. Initial Sepsis Screen: Does the patient meet any 2 criteria? No. Patient's initial sepsis screen is negative. Does the patient have a suspected source of infection? No. Patient's initial sepsis screen is negative. Care prior to arrival: None. 04:32 Method Of Arrival: Wheelchair lp1 04:32 Acuity: MONICA 4 lp1 Historical: - Allergies: 04:41 Ciprofloxacin HCl; lp1 04:41 Codeine; lp1 04:41 metoclopramide HCl; lp1 04:41 sulfamethoxazole-trimethoprim; lp1 - Home Meds: 04:41 albuterol sulfate inhalation Inhl 4 times per day [Active]; azithromycin 250 mg Oral lp1 tab 1 tab once daily [Active]; ethambutol 400 mg Oral tab 1200 mg once daily [Active]; Evista 60 mg Oral tab 1 tab once daily [Active]; Fish Oil 1,000 mg Oral cap twice a day [Active]; Gammagard Liquid 10 % injection soln 5 CM every 4 wks [Active]; ipratropium bromide 0.02 % inhalation soln every 6 hours [Active]; Lasix 20 mg Oral tab as needed [Active]; levothyroxine 50 mcg tab 1 tab once daily [Active]; lutein 40 mg Oral cap daily [Active]; potassium chloride 10 mEq Oral cpER 1 cap as needed [Active]; Requip 1 mg Oral tab four times a day [Active]; rifabutin 150 mg Oral cap 2 caps 2 times per day [Active]; Singulair 10 mg Oral tab 1 tab once daily [Active]; venlafaxine 50 mg Oral tab nightly [Active]; Vitamin D Oral 2000 unit daily [Active]; vitamin E 400 unit Oral cap daily [Active]; - PMHx: 04:41 breast cancer; chronic constipation; COPD; Hypertension; Maxillary Fracture; lp1 Mycobacterium Lung Infection; Orbital Fracture; - PSHx: 04:41 Tonsillectomy; Mastectomy; Knee surgery; Hernia repair; lp1 - Immunization history:: Adult Immunizations up to date. - Social history:: Smoking status: Patient/guardian denies using tobacco. - Ebola Screening: : No symptoms or risks identified at this time. Screenin:30 Abuse screen: Denies threats or abuse. Denies injuries from another. Nutritional lp1 screening: No deficits noted. Tuberculosis screening: No symptoms or risk factors identified. Fall Risk Total Dominguez Fall Scale indicates High Risk Score (45 or more points). Fall prevention measures have been instituted. Side Rails Up X 2 As available patient and family educated on Fall Prevention Program and Strategies. Assessment: 04:35 General: Appears in no apparent distress. Behavior is appropriate for age. Pain: lp1 Complains of pain in abdomen Pain currently is 10 out of 10 on a pain scale. Quality of pain is described as pressure, Pain began gradually. Neuro: Level of Consciousness is awake, alert, obeys commands, Oriented to person, place, situation. Cardiovascular: Patient's skin is warm and dry. Respiratory: Respiratory effort is even, unlabored. GI: Abdomen is distended, Bowel sounds present X 4 quads. Abdomen is tender to palpation X 4 quads. Reports constipation. : No signs and/or symptoms were reported regarding the genitourinary system. EENT: No signs and/or symptoms were reported regarding the EENT system. Derm: Skin is fragile, is thin, Skin is dry, Skin is normal. Musculoskeletal: Circulation, motion, and sensation intact. 05:29 Reassessment: Assisted patient to bsc at this time. lp1 05:40 Reassessment: Small BM noted in bsc. lp1 Vital Signs: 04:34 BP 189 / 76; Pulse 88; Resp 18; Temp 97.5(O); Pulse Ox 99% on 2 lpm NC; Weight 45.81 lp1 kg; Height 5 ft. 2 in. (157.48 cm); Pain 10/10; 04:50 BP 172 / 76; Pulse 82; Resp 18; Pulse Ox 100% on 2 lpm NC; lp1 05:29 BP 153 / 79; Pulse 80; Resp 18; Pulse Ox 100% on 2 lpm NC; lp1 04:34 Body Mass Index 18.47 (45.81 kg, 157.48 cm) lp1 ED Course: 04:10 Patient arrived in ED. do 04:17 Elan Gee MD is Attending Physician. gs 04:32 Charlotte Flores RN is Primary Nurse. lp1 04:34 Triage completed. lp1 04:34 Arm band placed on left wrist. lp1 04:35 Patient has correct armband on for positive identification. Pulse ox on. NIBP on. lp1 05:58 Shade Todd MD is Referral Physician. gs 06:15 No provider procedures requiring assistance completed. Patient did not have IV access lp1 during this emergency room visit. Administered Medications: 04:47 Drug: Dulcolax Suppository 10 mg Route: AR; lp1 06:15 Follow up: Response: No adverse reaction lp1 Outcome: 05:58 Discharge ordered by . gs 06:16 Discharged to home via wheelchair. lp1 06:16 Condition: good 06:16 Discharge instructions given to patient, family, Instructed on discharge instructions, follow up and referral plans. Demonstrated understanding of instructions, follow-up care. 06:16 Patient left the ED. lp1 Signatures: Charlotte Flores, RN RN lp1 Sisi Cortez Gregory, MD MD gs
[2018-03-24 15:14] VITALS: BP 153/79; TEMP 97.5; O2SAT 100
== END 2018-03-24 06:16 | disposition home or self-care (01) ==
LOC: ER 04:08
DX: K59.00 Constipation, unspecified (principal); I10 Essential (primary) hypertension; J44.9 Chronic obstructive pulmonary disease, unspecified; Z90.10 Acquired absence of unspecified breast and nipple; Z88.2 Allergy status to sulfonamides; Z85.3 Personal history of malignant neoplasm of breast; Z88.5 Allergy status to narcotic agent; Z88.8 Allergy status to other drugs, medicaments and biological substances
CPT/HCPCS: 99283